=== PATIENT | female | born 1955 | race Caucasian/White ===

== ENCOUNTER 2022-12-12 10:15 | Day surgery (SDC) | payer MEDICARE ==
[~2022-12-12] VITALS: Ht 162.6 cm; Wt 60.6 kg
[2022-12-12] MEDS ORDERED: PRE5T PO (10:48)
[2022-12-12] MEDS ORDERED: CHOL10008 PO (10:48)
[2022-12-12] MEDS ORDERED: OMEP20CA16 PO (10:48)
[2022-12-12] MEDS ORDERED: LACT1CAP65 PO (10:48)
[2022-12-12] MEDS ORDERED: LEVO50TA8 PO (10:48)
[2022-12-12 10:50] VITALS: BP 130/79
[2022-12-12 11:30] VITALS: BP 143/82
[2022-12-12 11:48] VITALS: BP 147/83
== END 2022-12-12 12:00 | disposition home or self-care (01) ==
LOC: SSTAY O 10:15
PROVIDERS: ATTEND Radiology Vascular & Interventional Radiology
DX: Z45.2 Encounter for adjustment and management of vascular access device (principal); C50.212 Malignant neoplasm of upper-inner quadrant of left female breast; E03.9 Hypothyroidism, unspecified; Z79.899 Other long term (current) drug therapy; Z88.8 Allergy status to other drugs, medicaments and biological substances; Z88.5 Allergy status to narcotic agent
CPT/HCPCS: 36590; J7030; A6449